=== PATIENT | male | born 2000 | race Caucasian/White ===

== ENCOUNTER 2023-11-28 22:35 | Emergency (ER) | payer SELFPAY ==
[2023-11-28 22:49] VITALS: RESP 18
--- NOTE | 2023-11-28 23:59 | ED ---
Eye Problem HPI - General Source: patient, RN notes reviewed Mode of arrival: ambulatory Limitations: no limitations <Norma Hoyt - Last Filed: 11/29/23 02:15> <Dru Saldivar - Last Filed: 11/29/23 03:51> - General Chief complaint: Eye Problems Stated complaint: eye injury Time Seen by Provider: 11/28/23 22:51 - History of Present Illness Initial comments: This is a 23-year-old male presents emergency department chief complaint of a injury to his right eye. Patient states that he was opening a car door when he hit his right eye. States that after this injury he had immediately blurry vision and noticed that was mild blood of his right eye. Currently patient is endorsing photophobia and mild pain with extraocular eye movements he that his eye is very tearful. Denies contact lens use or previous ophthalmologic surgeries. Is unaware when his last tetanus vaccination was. States he is also feeling mildly nauseous at this time. (Norma Hoyt) - Related Data Allergies Allergy/AdvReac Type Severity Reaction Status Date / Time No Known Allergies Allergy Verified 11/28/23 22:49 Review of Systems ROS Other: All systems not noted in ROS Statement are negative. <Norma Hoyt - Last Filed: 11/29/23 02:15> ROS Other: All systems not noted in ROS Statement are negative. <Dru Saldivar - Last Filed: 11/29/23 03:51> ROS Statement: Those systems with pertinent positive or pertinent negative responses have been documented in the HPI. Past Medical History Past Medical History: No Reported History History of Any Multi-Drug Resistant Organisms: None Reported Past Surgical History: No Surgical Hx Reported Past Psychological History: No Psychological Hx Reported Smoking Status: Current every day smoker, Vaper Past Alcohol Use History: Occasional Past Drug Use History: Marijuana <Norma Hoyt - Last Filed: 11/29/23 02:15> General Exam Limitations: no limitations General appearance: alert, in no apparent distress Head exam: Present: atraumatic, normocephalic, normal inspection Expanded Eyelids: Normal Inspection: Bilateral Sclera/Conjunctival: Injection: Right, Hemorrhage: Right Anterior chamber: Hyphema: Right Visual acuity (R) = 20/: 50 Visual acuity (L) = 20/: 20 With correction: No ENT exam: Present: normal exam, mucous membranes moist Respiratory exam: Present: normal lung sounds bilaterally. Absent: respiratory distress, wheezes, rales, rhonchi, stridor Cardiovascular Exam: Present: regular rate, normal rhythm, normal heart sounds. Absent: systolic murmur, diastolic murmur, rubs, gallop, clicks GI/Abdominal exam: Present: soft, normal bowel sounds. Absent: distended, tenderness, guarding, rebound, rigid Extremities exam: Present: normal inspection, full ROM, normal capillary refill. Absent: tenderness, pedal edema, joint swelling, calf tenderness Skin exam: Present: warm, dry, intact, normal color. Absent: rash <Norma Hoyt - Last Filed: 11/29/23 02:15> Course Vital Signs 11/28/23 11/29/23 22:44 02:12 Temperature 97.9 F 97.8 F Pulse Rate 56 L 60 Respiratory 18 18 Rate Blood Pressure 131/87 128/82 O2 Sat by Pulse 100 99 Oximetry Medical Decision Making - Lab Data Result diagrams: 11/29/23 00:38 11/29/23 00:38 <Norma Hoyt - Last Filed: 11/29/23 02:15> - Lab Data Result diagrams: 11/29/23 00:38 11/29/23 00:38 <Dru Saldivar - Last Filed: 11/29/23 03:51> - Medical Decision Making Was pt. sent in by a medical professional or institution ([facility], [employer], urgent care, hospital, or senior living...) When possible be specific @ -No Did you speak to anyone other than the patient for history (EMS, parent, family, police, friend...)? What history was obtained from this source @ -No Did you review nursing and triage notes (agree or disagree)? Why? @ -I reviewed and agree with nursing and triage notes Were old charts reviewed (outside hosp., previous admission, EMS record, old EKG, old radiological studies, urgent care reports/EKG's, senior living records)? Report findings @ -No old charts were reviewed Differential Diagnosis (chest pain, altered mental status, abdominal pain women, abdominal pain men, vaginal bleeding, weakness, fever, dyspnea, syncope, headache, dizziness, GI bleed, back pain, seizure, CVA, palpatations, mental health, musculoskeletal)? @ -Corneal abrasion, globe rupture, hyphema, iritis, conjunctival laceration, this list is not all inclusive. EKG interpreted by me (3pts min.). @ -none X-rays interpreted by me (1pt min.). @ -None done CT interpreted by me (1pt min.). @ -None done U/S interpreted by me (1pt. min.). @ -None done What testing was considered but not performed or refused? (CT, X-rays, U/S, labs)? Why? @ -CT imaging of the close was considered but deferred at this time. My attending, Dr. Saldivar, spoke with attending safety instruction police officer at [facility] in regard to the patient's case where a photo was obtained. Does recommend the patient be discharged home with topical eyedrops addition to erythromycin eye antibiotic ointment follow-up first thing in the morning outpatient with safety instruction police officer for further evaluation. What meds were considered but not given or refused? Why? @ -None Did you discuss the management of the patient with other professionals (professionals i.e. , PA, WOOD [employer], lab, RT, psych nurse, social media director, all source intelligence technician, teacher, real estate utilization officer, piano case maker)? Give summary @ -No Was smoking cessation discussed for >3mins.? @ -No Was critical care preformed (if so, how long)? @ -No Were there social determinants of health that impacted care today? How? (Homelessness, low income, unemployed, alcoholism, drug addiction, transportation, low edu. Level, literacy, decrease access to med. care, penitentiary, rehab)? @ -No Was there de-escalation of care discussed even if they declined (Discuss DNR or withdrawal of care, Hospice)? DNR status @ -No What co-morbidities impacted this encounter? (DM, HTN, Smoking, COPD, CAD, Cancer, CVA, ARF, Chemo, Hep., AIDS, mental health diagnosis, sleep apnea, morbid obesity)? @ -None Was patient admitted / discharged? Hospital course, mention meds given and route, prescriptions, significant lab abnormalities, going to OR and other pertinent info. @ -Discharge. 23-year-old male with injury to right eye. On examination patient's right eye is injected with oblong shape of pupil and pupil is not as reactive as compared to left eye. Visual acuity is moderately depressed with a right eye of 20/50 and left eye of 20/20. With visual concern of potential globe rupture with changes in pupil size and decrease in acuity intraocular pressure and fluorescein staining were deferred at this time until consultation with safety instruction police officer is obtained. Spoke with safety instruction police officer at [facility] in regard to the patient's case and he will be discharged home with topical drops and sent home with these medications to use in follow-up first thing in the morning with opthamologist for further evaluation and treatment. Recommend that the patient receive first dose of atropine, prednisolone, timolol, brimonidine, and erythromycin ointment in the EC and take them as prescribed until follow up.All questions answered at bedside and strict return parameters discussed with the patient and he has verablized understanding. discussed with Dr. Saldivar Undiagnosed new problem with uncertain prognosis? @ -No Drug Therapy requiring intensive monitoring for toxicity (Heparin, Nitro, Insulin, Cardizem)? @ -No Were any procedures done? @ -No Diagnosis/symptom? @ -Traumatic iritis, hyphema, corneal abrasion Acute, or Chronic, or Acute on Chronic? @ -acute Uncomplicated (without systemic symptoms) or Complicated (systemic symptoms)? @ -uncomplicated Side effects of treatment? @ -No Exacerbation, Progression, or Severe Exacerbation? @ -No Poses a threat to life or bodily function? How? (Chest pain, USA, SC, pneumonia, PE, COPD, DKA, ARF, appy, cholecystitis, CVA, Diverticulitis, Homicidal, Suicidal, threat to staff... and all critical care pts) @ -No (Norma Hoyt) Spoke at length with Dr. Frias of ophthalmology from [facility]. I did receive verbal consent from the patient to take images of his injured eye. Dr. Mares was able to evaluate these images. He is not concerned for globe rupture at this time. He has concern for traumatic iritis, hyphema, corneal abrasion. States patient can follow-up with his clinic in the morning at 9 AM. Name is [facility]. Recommended patient be started on atropine, prednisolone, timolol, briminodine, erythromycin eye treatments. Patient updated by myself as well as midlevel provider Norma. After this discussion, patient does not require transfer. Patient will follow up in the morning. He was in agreement this plan. (Dru Saldivar) - Lab Data Lab Results 11/29/23 11/29/23 Range/Units 00:38 00:38 WBC 16.7 H (3.8-10.6) k/uL RBC 4.95 (4.30-5.90) m/uL Hgb 14.8 (13.0-17.5) gm/dL Hct 44.3 (39.0-53.0) % MCV 89.5 (80.0-100.0) fL MCH 29.9 (25.0-35.0) pg MCHC 33.5 (31.0-37.0) g/dL RDW 12.7 (11.5-15.5) % Plt Count 374 (150-450) k/uL MPV 6.9 Neutrophils % 85 % Lymphocytes % 9 % Monocytes % 4 % Eosinophils % 1 % Basophils % 0 % Neutrophils # 14.2 H (1.3-7.7) k/uL Lymphocytes # 1.5 (1.0-4.8) k/uL Monocytes # 0.7 (0-1.0) k/uL Eosinophils # 0.1 (0-0.7) k/uL Basophils # 0.1 (0-0.2) k/uL Sodium 135 L (137-145) mmol/L Potassium 3.8 (3.5-5.1) mmol/L Chloride 101 (98-107) mmol/L Carbon Dioxide 27 (22-30) mmol/L Anion Gap 7 mmol/L BUN 10 (9-20) mg/dL Creatinine 0.91 (0.66-1.25) mg/dL Est GFR (CKD-EPI)AfAm >90 (>60 ml/min/1.73 sqM) Est GFR (CKD-EPI)NonAf >90 (>60 ml/min/1.73 sqM) Glucose 120 H (74-99) mg/dL Calcium 10.1 (8.4-10.2) mg/dL Total Bilirubin 0.8 (0.2-1.3) mg/dL AST 38 (17-59) U/L ALT 25 (4-49) U/L Alkaline Phosphatase 85 (38-126) U/L Total Protein 7.2 (6.3-8.2) g/dL Albumin 4.7 (3.5-5.0) g/dL Disposition Is patient prescribed a controlled substance at d/c from ED?: No Time of Disposition: 01:33 <Norma Hoyt - Last Filed: 11/29/23 02:15> <Dru Saldivar - Last Filed: 11/29/23 03:51> Clinical Impression: Traumatic iritis, Hyphema, Corneal abrasion Disposition: HOME SELF-CARE Condition: Good Instructions (If sedation given, give patient instructions): Hyphema (ED) Additional Instructions: Follow-up tomorrow morning with Dr. Frias, safety instruction police officer, with [facility] in [place] for further evaluation and treatment. Take medications as prescribed including: atropine 1 drop in the right eye 2 times per day, prednisolone drops at least 5 times per day or every 2 hours, timolol one drop two times per day, brimonidine one drop two times per day, and erythromycin ointment 3 times a day Referrals: None,Stated [Primary Care Provider] - 1-2 days
[2023-11-29] MEDS: DIPH,PERTUS(ACELL)TETVAC-LF 0.5 ML VIAL IM ONE (00:35)
[2023-11-29] MEDS: KETOROLAC 15 MG/ML 1 ML VIAL IVP STA (00:39)
[2023-11-29] MEDS: ONDANSETRON 4 MG/2 ML VIAL IVP STA (00:39)
[2023-11-29] MEDS: KETOROLAC 15 MG/ML 1 ML VIAL IM STA (00:40)
[2023-11-29 00:46] LABS: Basophils # (A) 0.1 k/uL (0-0.2); Basophils % (A) 0 %; Eosinophils # (A) 0.1 k/uL (0-0.7); Eosinophils % (A) 1 %; HCT 44.3 % (39.0-53.0); HGB 14.8 gm/dL (13.0-17.5); Lymphocytes # (A) 1.5 k/uL (1.0-4.8); Lymphocytes % (A) 9 %; MCH 29.9 pg (25.0-35.0); MCHC 33.5 g/dL (31.0-37.0); MCV 89.5 fL (80.0-100.0); Mean Platelet Volume 6.9; Monocytes # (A) 0.7 k/uL (0-1.0); Monocytes % (A) 4 %; Neutrophils # (A) 14.2 k/uL (1.3-7.7); Neutrophils % (A) 85 %; Platelet Count 374 k/uL (150-450); RBC 4.95 m/uL (4.30-5.90); RDW 12.7 % (11.5-15.5); WBC 16.7 k/uL (3.8-10.6)
[2023-11-29] MEDS: IBUPROFEN 800 MG TAB PO STA (00:46)
[2023-11-29] MEDS: ONDANSETRON ODT 4 MG TAB PO STA (00:47)
[2023-11-29 01:05] LABS: ALT 25 U/L (4-49); AST 38 U/L (17-59); African American GFR (CKD) >90 (>60 ml/min/1.73 sqM); Albumin 4.7 g/dL (3.5-5.0); Alkaline Phosphatase 85 U/L (38-126); Anion Gap 7 mmol/L; Blood Urea Nitrogen 10 mg/dL (9-20); Calcium 10.1 mg/dL (8.4-10.2); Carbon Dioxide 27 mmol/L (22-30); Chloride 101 mmol/L (98-107); Glucose 120 mg/dL (74-99); Non-African American GFR(CKD) >90 (>60 ml/min/1.73 sqM); Potassium 3.8 mmol/L (3.5-5.1); Sodium 135 mmol/L (137-145); Total Bilirubin 0.8 mg/dL (0.2-1.3); Total Protein 7.2 g/dL (6.3-8.2)
[2023-11-29] MEDS: BRIMONIDINE TARTRATE 0.2% DROPS 5 ML BTL RIGHT EYE STA (01:56)
[2023-11-29] MEDS: ERYTHROMYCIN 5 MG/GM OPHTH OINT 3.5 GM TUBE RIGHT EYE STA (01:56)
[2023-11-29] MEDS: prednisoLONE ACETATE 1% OPHTH DROPS 5 ML BTL RIGHT EYE STA (01:56)
[2023-11-29] MEDS: TIMOLOL 0.5% OPHTH DROPS 5 ML BTL RIGHT EYE STA (01:57)
[2023-11-29] MEDS: ATROPINE OPHTH SOLN 1% 5ML BTL RIGHT EYE STA (01:57)
[2023-11-29 02:18] VITALS: BP 128/82; PULSE 60; TEMP 97.8
== END 2023-11-29 02:19 | disposition home or self-care (01) ==
LOC: EC 22:35
CPT/HCPCS: 36415; 80053; 85025; 90471; 90715; 99283